=== PATIENT | female | born 1960 | race Caucasian/White ===

== ENCOUNTER → 2016-06-27 | Outpatient (CLI) | payer MEDICARE, MEDICAID ==
[~2016-06-27] MED LIST: ALBUTEROL2.5 MG/NEB IN; AMITRIPTYLINE100 MG PO; CIPRO 500MG TA500 MG PO; CLONAZEPAM 1MG T1 MG PO; CLONAZEPAM0.5 M1 PO; DARVOCET-N 1001 EACH PO; DEPAKOTE 500MG500 MG PO; DICLOFENAC SOD75 MG PO; ESTRADIOL1 MG OR; FLEXERIL10 M1 PO; FLEXERIL5 MG PO; FLUOXETINE20 M2 PO; GABAPENTIN 600600 MG PO; HYDROCODONE1 TABLET PO; IBUPROFEN600 MG PO; KEFLEX 500MG.500 MG PO; KLONOPIN2 MG PO; LORTAB 5/500 501 TAB PO; METRONIDAZOLE500 MG PO; NAPROSYN 500MG500 MG PO; PEN-VK500 MG PO; PENICILLIN-VK500 MG PO; PERCOCET 325 MG1 TA3 PO; PERCOCET 5/3251 EACH PO; PHENERGAN 25MG.25 M1 PO; PREDNISONE 20MG20 MG PO; PROZAC; PYRIDIUM 200MG200 MG PO; ROBAXIN-750750 MG PO; SEPTRA DS 800 M1 TAB PO; TOPIRAGEN200 MG PO; TORADOL10 M1 PO; TRAMADOL 50MG T50 MG PO; TRAZODONE 50MG50 MG PO; TYLENOL/COD #41 EAC1 PO; ULTRAM 50 MG TA50 MG PO; ULTRAM50 MG PO; VALIUM 5MG TABLE5 MG PO; VENLAFAXINE75 MG PO; VICODIN 5/500 T1 TAB PO; ZITHROMAX Z PA250 MG PO; ZOLOFT 50MG TAB50 MG PO
--- NOTE | 2016-06-27 17:15 | RADIOLOGY REPORT PS360 ---
[id number] VIEWS HISTORY: LEFT SHOULDER PAIN ORDERING PHYSICIAN: Shaun Crystal MD PATIENT AGE: 56 years COMPARISON: None FINDINGS: No fracture or dislocation. No lytic or blastic change. There is normal mineralization. The joint spaces are well-preserved. No significant degenerative/arthritic changes. No erosive changes evident. IMPRESSION: Negative, no acute finding
== END ==
LOC: RAD 15:40
DX: M25.512 Pain in left shoulder (principal)

== ENCOUNTER → 2016-09-04 | Outpatient (CLI) | payer MEDICARE, MEDICAID ==
[2016-09-04 18:16] LABS: AMPHETAMINES/METAMPHETAMINES NEGATIVE ng/mL (<1000)
== END ==
LOC: LAB 16:47
PROVIDERS: Emergency Medicine
DX: Z79.899 Other long term (current) drug therapy (principal)
CPT/HCPCS: G0480

== ENCOUNTER 2017-02-05 12:46 | Emergency (ER) | payer MEDICARE, MEDICAID ==
[~2017-02-05] VITALS: Ht 160 cm; Wt 74.8 kg
--- NOTE | 2017-02-05 13:27 | Emergency Room Report ---
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 N Clinical Suspician of Infection? N Mental Status: 1 - Regular (Normal Baseline) Sepsis Risk:Low Sepsis Risk Have you (or family members/close friends) recently traveled outside the [place]? N If Yes, where/when: Have you had exposure to infectious disease within the past month? N TB? Other? Specify: Source patient, RN notes reviewed Exam Limitations no limitations Comment Pt with painin her low back and particularly her right hip for anywhere from 5 to 6 months. No history of any fall or injury but says her hip hurts so badly she can barely walk. She has had surgery on the low back several years ago and it stillhurts too. She saw Dr. Crystal in November Cardiac Chest Pain Chest pain indicative of cardiac No Timing/Duration changing over time Severity severe ALLERGIES Coded Allergies: No Known Allergies (08/03/16) Home Medications Active Scripts Azithromycin (Zithromycin (Z-SULLY) 250MG Tab) 250 MG PO DAILY #6 TAB Prov: 08/06/16 Prednisone (Prednisone 20MG) 20 MG PO BID 5 Days Prov: 08/06/16 Reported Medications Clonazepam (Clonazepam 0.5MG) 0.5 MG PO BID Fluoxetine Hydrochloride (Fluoxetine) 20 MG PO DAILY Gabapentin (Gabapentin 600MG) 800 MG PO TID Divalproex Sodium (Depakote) 500 MG PO BID Estradiol 1 MG OR DAILY History Medical History General CAD? No Angina: No CO: No Hypertension? No Hyperlipidemia? No CHF? No COPD? Yes Asthma? No Anemia? No Hernia? No Thyroid Problems? No Hypothyroidism? No CVA? No Seizures? No Diabetes? No End Stage Renal Disease? No UTI? No Stones? No GB Disease: Yes Nephritic Syndrome? No Asplenia? No Hepatitis? No Sickle Cell Disease? No Arthritis? No Cataracts? No Glaucoma? No MRSA? No TB? No Anxiety? Yes Depression? Yes Cancer? No More? 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 Family History Family Hx Diabetes Yes CAD No Hypertension No Hyperlipidemia No Cancer Yes TB No Social History Smoking Hx Smoker: Current Every Day Smoker Tobacco: Yes Type Cigarettes Packs/day < 1 Pack Alcohol Alcohol: No Review of Systems All Other Systems Reviewed and Negative Constitutional see HPI Musculoskeletal see HPI, back pain, other (right hip pain) Physical Exam Vital Signs Vital Signs Date Time Temp Pulse Resp B/P Pulse O2 O2 Flow FiO2 Ox Delivery Rate 02/05 1253 98.6 88 18 135/79 98 General Appearance normal appearance, WD/WN, moderate distress Ear, Nose, Throat very hard of hearing Respiratory Status No: respiratory distress. 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 Yes Josue was queried for this patient? Yes Reference #: [id number] Risks/benefits of using a controlled substance for treatment were not discussed w/pt Results/Orders Laboratory Tests 02/05/17 1341: ESR 19 Orders Procedure Date/time Status DIET-NOTHING BY MOUTH 02/[address] SCAN REQ 02/05 1411 Active SED RATE 02/05 1333 Complete C-REACTIVE PROTEIN 02/05 1333 Complete XRAY/CT/US XRAY/CT/US CT L-spine CT interpretation by discussed w/radiologist (spinal stenosis lumbar spine) Time results known: 1534 Departure Departure Time of Disposition 153 Disposition DC Home or Self Care(routine) Clinical Impression Primary Impression: Degenerative lumbar spinal stenosis Condition STABLE Referrals Bonilla RICO,Shaun Jansen (PCP/Family): 3 Days-Call Office Patient Instructions DI for Low Back Pain, Low Back Pain Additional Instructions Use meds as directed. Sleep on a flat hard surface. Follow up with PCP to get MRI of L spine Discharge Counseling Counseled pt/family regarding diagnosis, test results, medications/RX, home care, follow up needs Prescriptions Current Visit Scripts HYDROCODONE 5MG/APAP 325MG (Hydrocodon-Acetaminophen 5-325) 1 TAB PO Q4HP PRN pain #18 TAB Cyclobenzaprine Hcl (Flexeril) 5 MG PO BID #60 TAB ED Critical Care Critical Care No If Critical Care minutes are documented, the time involved in the performance of seperately reportable procedures was not counted toward critical care time documented. I directly delivered medical care to this critically ill and/or injured patient. Timely evaluation and treatment was necessary to address the significant organ system(s) dysfunction present in this patient. at 1826
--- NOTE | 2017-02-05 13:27 | Emergency Room Report ---
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 N Clinical Suspician of Infection? N Mental Status: 1 - Regular (Normal Baseline) Sepsis Risk:Low Sepsis Risk Have you (or family members/close friends) recently traveled outside the [place]? N If Yes, where/when: Have you had exposure to infectious disease within the past month? N TB? Other? Specify: Source patient, RN notes reviewed Exam Limitations no limitations Comment Pt with painin her low back and particularly her right hip for anywhere from 5 to 6 months. No history of any fall or injury but says her hip hurts so badly she can barely walk. She has had surgery on the low back several years ago and it stillhurts too. She saw Dr. Crystal in November Cardiac Chest Pain Chest pain indicative of cardiac No Timing/Duration changing over time Severity severe ALLERGIES Coded Allergies: No Known Allergies (08/03/16) Home Medications Active Scripts Azithromycin (Zithromycin (Z-SULLY) 250MG Tab) 250 MG PO DAILY #6 TAB Prov: 08/06/16 Prednisone (Prednisone 20MG) 20 MG PO BID 5 Days Prov: 08/06/16 Reported Medications Clonazepam (Clonazepam 0.5MG) 0.5 MG PO BID Fluoxetine Hydrochloride (Fluoxetine) 20 MG PO DAILY Gabapentin (Gabapentin 600MG) 800 MG PO TID Divalproex Sodium (Depakote) 500 MG PO BID Estradiol 1 MG OR DAILY History Medical History General CAD? No Angina: No VA: No Hypertension? No Hyperlipidemia? No CHF? No COPD? Yes Asthma? No Anemia? No Hernia? No Thyroid Problems? No Hypothyroidism? No CVA? No Seizures? No Diabetes? No End Stage Renal Disease? No UTI? No Stones? No GB Disease: Yes Nephritic Syndrome? No Asplenia? No Hepatitis? No Sickle Cell Disease? No Arthritis? No Cataracts? No Glaucoma? No MRSA? No TB? No Anxiety? Yes Depression? Yes Cancer? No More? 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 Family History Family Hx Diabetes Yes CAD No Hypertension No Hyperlipidemia No Cancer Yes TB No Social History Smoking Hx Smoker: Current Every Day Smoker Tobacco: Yes Type Cigarettes Packs/day < 1 Pack Alcohol Alcohol: No Review of Systems All Other Systems Reviewed and Negative Constitutional see HPI Musculoskeletal see HPI, back pain, other (right hip pain) Physical Exam Vital Signs Vital Signs Date Time Temp Pulse Resp B/P Pulse O2 O2 Flow FiO2 Ox Delivery Rate 02/05 1253 98.6 88 18 135/79 98 General Appearance normal appearance, WD/WN, moderate distress Ear, Nose, Throat very hard of hearing Respiratory Status No: respiratory distress. 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 Yes Josue was queried for this patient? Yes Reference #: [id number] Risks/benefits of using a controlled substance for treatment were not discussed w/pt Results/Orders Laboratory Tests 02/05/17 1341: ESR 19 Orders Procedure Date/time Status DIET-NOTHING BY MOUTH 02/[address] SCAN REQ 02/05 1411 Active SED RATE 02/05 1333 Complete C-REACTIVE PROTEIN 02/05 1333 Complete XRAY/CT/US XRAY/CT/US CT L-spine CT interpretation by discussed w/radiologist (spinal stenosis lumbar spine) Time results known: 1534 Departure Departure Time of Disposition 153 Disposition DC Home or Self Care(routine) Clinical Impression Primary Impression: Degenerative lumbar spinal stenosis Condition STABLE Referrals Bonilla RICO,Shaun Jansen (PCP/Family): 3 Days-Call Office Patient Instructions DI for Low Back Pain, Low Back Pain Additional Instructions Use meds as directed. Sleep on a flat hard surface. Follow up with PCP to get MRI of L spine Discharge Counseling Counseled pt/family regarding diagnosis, test results, medications/RX, home care, follow up needs Prescriptions Current Visit Scripts HYDROCODONE 5MG/APAP 325MG (Hydrocodon-Acetaminophen 5-325) 1 TAB PO Q4HP PRN pain #18 TAB Cyclobenzaprine Hcl (Flexeril) 5 MG PO BID #60 TAB ED Critical Care Critical Care No If Critical Care minutes are documented, the time involved in the performance of seperately reportable procedures was not counted toward critical care time documented. I directly delivered medical care to this critically ill and/or injured patient. Timely evaluation and treatment was necessary to address the significant organ system(s) dysfunction present in this patient. at 1998
--- NOTE | 2017-02-05 15:10 | RADIOLOGY REPORT PS360 ---
CT LUMBAR SPINE W/O CONTRAST CLINICAL INDICATION: Low back pain LOW BACK SURGERY AND PAIN ORDERING PHYSICIAN: Cass Woods MD PATIENT AGE: 56 years COMPARISON: MRI of a 1816 TECHNIQUE:Axial, sagittal, and coronal images are generated and reviewed without contrast FINDINGS: No acute fracture or dislocation. T11-T12, T12-L1 have an unremarkable appearance. L1-L2: Mild degenerative disc disease with small anterior osteophytes. L2-L3: Unremarkable. L3-L4: Small anterior osteophytes. L4-5: Mild degenerative disc disease with small endplate osteophytes anteriorly and mild facet hypertrophic change with mild bulging disc. L5-S1: Prominent facet hypertrophic change and posterior element hypertrophy with mild bilateral foraminal narrowing. Minimal anterolisthesis of L5 on S1 of 2 mm with mild bulging disc. Transverse canal narrowing is present at 9 mm. IMPRESSION: 1. Lumbar spondylosis as described in each level above. Please see above for detail description at each level. 2. Severe facet arthritic changes at L5-S1 with bilateral foraminal narrowing and transverse canal stenosis.
--- NOTE | 2017-02-05 15:10 | RADIOLOGY REPORT PS360 ---
HIP RT 2-3V W/PELVIS IF PERFOR HISTORY: Right hip pain pain ORDERING PHYSICIAN: Cass Woods MD PATIENT AGE: 56 years COMPARISON: None FINDINGS: No fracture or dislocation is evident. No significant degenerative change. No lytic or blastic change. Unremarkable soft tissues IMPRESSION: Negative hip
[2017-02-05 15:51] VITALS: BP 130/74
== END 2017-02-05 15:54 | disposition home or self-care (01) ==
LOC: ER 12:46
DX: M48.06 Spinal stenosis, lumbar region (principal); F17.210 Nicotine dependence, cigarettes, uncomplicated; J44.9 Chronic obstructive pulmonary disease, unspecified; F31.9 Bipolar disorder, unspecified; F41.9 Anxiety disorder, unspecified; Z79.899 Other long term (current) drug therapy; Z79.890 Hormone replacement therapy

== ENCOUNTER → 2017-02-27 | Outpatient (CLI) | payer MEDICARE, MEDICAID ==
[~2017-02-27] MED LIST changes: +FLEXERIL10 MG PO; +HYDROCODONE-APA1 TA1 PO
--- NOTE | 2017-02-27 15:41 | RADIOLOGY REPORT PS360 ---
MRI-L-SPINE W/O COMPARISON: CT lumbar spine 02/05/2017 HISTORY: Low back pain TECHNIQUE: Standard sagittal and axial sequences were performed along with a myelogram sequence. FINDINGS: There is normal curvature and alignment. The marrow signal is normal in all lumbar vertebrae except for minimal sclerotic change anterior inferior borders of the L3-L4 and L1. The spinal canal is normal in size from L1 through L3 4 disc space. The L1-2, L2-3 and L3-4 disc per normal. There is a mild diffuse hard disc osteophyte complex at the L4-5 level. There are mild hypertrophic facet changes at the L3-4 level and moderately severe hypertrophic facet changes at the L4-5 and L5-S1 levels. There is bilateral neural foraminal narrowing at the L4-5 level and mild neural foraminal narrowing on the left-sided L5-S1 secondary to facet arthritic changes. There is bony spinal stenosis at L5-S1 level due to the somewhat small spinal canal at this level compounded by the markedly prominent hypertrophic facet changes. There is definite loss of CSF signal at this level on the myelogram sequence. IMPRESSION: Mild to moderate bony spinal stenosis lower lumbar spine most prominent at L5-S1 level with markedly prominent hypertrophic facet changes at L4-5 and L5-S1 with neural foraminal narrowing at levels L4-5 and L5-S1 as described above
== END ==
LOC: RAD 13:00
DX: M54.5 Low back pain (principal)

== ENCOUNTER 2017-04-16 17:21 | Emergency (ER) | payer MEDICARE, MEDICAID ==
[~2017-04-16] VITALS: Ht 160 cm; Wt 77.1 kg
--- NOTE | 2017-04-16 17:32 | Emergency Room Report ---
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 N Clinical Suspician of Infection? N Mental Status: 1 - Regular (Normal Baseline) Sepsis Risk:Low Sepsis Risk Have you (or family members/close friends) recently traveled outside the [place]? N If Yes, where/when: Have you had exposure to infectious disease within the past month? N TB? Other? Specify: Comment The patient complains of low back pain. She has chronic low back pain and says that she is out of her medication, hydrocodone. She says that she has been out for 1 week. She initially says that she was prescribed this medication by Dr. Woods. On further questioning she then tells me that she saw Dr. Crystal after seeing Dr. Woods in the emergency department here on 02/05/17. She tells me that Dr. Crystal was the last one to prescribe her pain medication. She says that she is going to be seeing Dr. Magaña for pain management but has not yet seen him. ALLERGIES Coded Allergies: No Known Allergies (08/03/16) Home Medications Active Scripts HYDROCODONE 5MG/APAP 325MG (Hydrocodon-Acetaminophen 5-325) 1 TAB PO Q4HP PRN pain #18 TAB Prov: 02/05/17 Cyclobenzaprine Hcl (Flexeril) 5 MG PO BID #60 TAB Prov: 02/05/17 Azithromycin (Zithromycin (Z-SULLY) 250MG Tab) 250 MG PO DAILY #6 TAB Prov: 08/06/16 Prednisone (Prednisone 20MG) 20 MG PO BID 5 Days Prov: 08/06/16 Reported Medications Clonazepam (Clonazepam 0.5MG) 0.5 MG PO BID Fluoxetine Hydrochloride (Fluoxetine) 20 MG PO DAILY Gabapentin (Gabapentin 600MG) 800 MG PO TID Divalproex Sodium (Depakote) 500 MG PO BID Estradiol 1 MG OR DAILY History Medical History General CAD? No Angina: No NM: No Hypertension? No Hyperlipidemia? No CHF? No COPD? Yes Asthma? No Anemia? No Hernia? No Thyroid Problems? No Hypothyroidism? No CVA? No Seizures? No Diabetes? No End Stage Renal Disease? No UTI? No Stones? No GB Disease: Yes Nephritic Syndrome? No Asplenia? No Hepatitis? No Sickle Cell Disease? No Arthritis? No Cataracts? No Glaucoma? No MRSA? No TB? No Anxiety? Yes Depression? Yes Cancer? No More? Yes Additional hx: BIPOLAR Immunization Hx DT/Tetanus Unknown Flu Refused Pneumonia Refuses Surgical Hx Previous Surgery?Y CHOLECYSTECTOMY Tubal Ligation D AND C IAM Back Family History Family Hx Diabetes Yes CAD No Hypertension No Hyperlipidemia No Cancer Yes TB No Social History Smoking Hx Packs/day < 1 Pack Alcohol Alcohol: No Review of Systems All Other Systems Reviewed and Negative Musculoskeletal back pain Physical Exam Vital Signs Vital Signs Date Time Temp Pulse Resp B/P Pulse O2 O2 Flow FiO2 Ox Delivery Rate 04/16 1810 82 18 140/70 04/16 1754 16 04/16 1730 98.3 96 18 146/75 98 General Appearance no apparent distress Respiratory Status No: respiratory distress. 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 No Josue was queried for this patient? Yes Comment [id number] 22 rxs. last rx 04/04/17, 90 lortab 7.5mg. Results/Orders Current Medication Orders Sig/Romeo Start time Last Medication Dose Route Stop Time Status Admin Ketorolac 60 MG ONCE ONE 04/16 1800 DC 04/16 Tromethamine IM 04/16 1801 1754 Ketorolac 0 .STK-MED ONE 04/16 1754 DC Tromethamine .ROUTE Progress - 5:50 PM: I discussed the patient's Josue report with her. It is in conflict with what she is telling me. I advised her of the record of a prescription from Dr. Magaña for 90 Lortab 7.5 mg 12 days ago, which should have been a 30 day supply. She then admits to me that she did receive this prescription and has seen Dr. Lazaro, but states that she ran out because she takes more than prescribed. I advised her that I would not treat her with any narcotics in the emergency department or prescribe any more narcotics. She is misusing her medications and in addition was falsifying information to obtain more here in the emergency department. Departure Departure Disposition DC Home or Self Care(routine) Clinical Impression Primary Impression: Chronic back pain Qualifiers: Back pain location: low back pain Back pain laterality: right Sciatica presence: with sciatica Sciatica laterality: sciatica of right side Qualified Code: M54.41 - Lumbago with sciatica, right side Condition STABLE Patient Instructions DI for Back Pain With Sciatica Additional Instructions Follow-up with Dr. Magaña for further pain management. Always take your pain medication as prescribed, do not take more than prescribed. ED Critical Care Critical Care No at [id number]
--- OUTSIDE RECORDS SUMMARY | 2017-04-16 17:46 | External Medical Summary Rpt | CCD ---
Author Author , STEVE WILSON Address Unknown Phone [email or web address] Care Team Providers Care Digital Artist Name Role Phone REBECCA MANZANARES Unavailable Unavailable D, REBECCA MANZANARES UZMA, Unavailable Unavailable ANTHONY DA SILVA, Unavailable Unavailable [facility], Unavailable Unavailable [facility], Unavailable Unavailable [facility] [place], Unavailable Unavailable [place] [facility] Unavailable Unavailable INC, [facility] Unavailable Unavailable HOSPITAL P, [facility], Unavailable Unavailable [facility] Unavailable Unavailable [facility], [facility] TRENT MYA, TRENT Unavailable Unavailable MYA Ruby Stout MD, Unavailable Unavailable Ruby Stout MD [facility] Unavailable Unavailable SERVICES, [facility] BREANNA ZHAO, Unavailable Unavailable Joi LAGUNAS JR, MELTON, Unavailable Unavailable Joi LOPEZ, SANJOYDEB, Unavailable Unavailable JESSICA SANJOYDEB [facility] Unavailable Unavailable [facility], [facility], Unavailable Unavailable [facility], [facility] Unavailable Unavailable RAJIV TOMAS, Unavailable Unavailable RAJIV TOMAS JON J, Unavailable Unavailable [facility] Unavailable Unavailable [facility] [address], Unavailable Unavailable [facility] [address] [facility] [address], Unavailable Unavailable [facility] [address] [facility] Unavailable Unavailable DEPT [facility], [facility] MELANIE Evan Heck MD, Unavailable Unavailable Evan Heck MD [facility], Unavailable Unavailable [facility] Mackenzie ABBASI ZAACKS, Unavailable Unavailable P L Purpose Continuity of Care Document - 07-08-2007 through 2016 Problems Code Diagnosis DOS Provider Status M545 LOW BACK 02-27-2017 [facility] M5416 RADICULOPAT 02-18-2017 [facility] LUMBAR PHYS[facility] REGION GROUP M1711 UNILATERAL 02-13-2017 [facility] TIS RIGHT SHANNAN KNEE [id number] PRIMARY 02-13-2017 [facility] TIS RIGHT PHARMACEUTI WRIST SHANNAN [id number] PRIMARY 02-13-2017 [facility] TIS LEFT PHARMACEUTI WRIST SHANNAN [id number] PRIMARY 02-13-2017 [facility] TIS RIGHT PHARMACEUTI HAND SHANNAN [id number] PRIMARY 02-13-2017 [facility] TIS LEFT PHARMACEUTI HAND SHANNAN M5137 OTH 02-13-2017 [facility] RAL DISC PHARMACEUTI DEGEN SHANNAN LUMBOSACRAL REGION [id number] SPINAL 02-13-2017 [facility] ES PHARMACEUTI LUMBOSACRAL SHANNAN REGION M6281 MUSCLE 02-13-2017 [facility] GENERALIZED PHARMACEUTI SHANNAN M4806 SPINAL 02-05-2017 [facility] LUMBAR PLL[facility] REGION J449 CHRONIC 01-08-2017 [facility] DISEASE UNS E876 HYPOKALEMIA 08-05-2016 [facility] J189 PNEUMONIA 08-05-2016 [facility] UNSPECIFIED PHYSICIANS ORGANISM GROUP J441 CHRONIC 08-05-2016 [facility] OBSTRUCTIVE PHYSICIANS PULMONARY GROUP DZ W/EXACERBAT ION R05 COUGH 08-03-2016 [facility] R0602 SHORTNESS 08-03-2016 [place] [facility] R079 CHEST PAIN 08-03-2016 [facility] [id number] PAIN IN 06-27-2016 [place] LEFT [facility]ICAL SHOULDER [facility] N6002 SOLITARY 04-06-2016 [facility] LEFT BREAST INC R928 OTH ABNORM 04-06-2016 [facility] & MEDICAL INCONCLUSIV IMAGING ASS E FIND ON DX IMAG BREAST B373 CANDIDIASIS 04-05-2016 [facility] OF VULVA PHYSICIANS AND VAGINA GROUP N951 MENOPAUSAL 04-05-2016 [facility] CLIMACTERIC GROUP STATES N6019 DIFFUSE 01-30-2016 [facility] CYSTIC PHYSICIANS MASTOPATHY GROUP OF UNSPECIFIED BREAST S37758 ENCOUNTER 01-30-2016 [facility] 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 PHYSICIANS GENERAL RTN GROUP W/O ABNORMAL FIND Z1212 ENCOUNTER 01-30-2016 [facility] SCREENING PHYSICIANS MALIGNANT GROUP NEOPLASM RECTUM N42661 SPONDYLOSIS 01-05-2016 [facility] W/O MEDICAL MYELOPATH/R IMAGING ASS ADICULOPATH Y LUMB RGN D123 BENIGN 12-13-2015 [facility] NEOPLASM OF PHYSICIANS TRANSVERSE GROUP COLON D125 BENIGN 12-13-2015 [facility] NEOPLASM OF PHYSICIANS SIGMOID GROUP COLON Z1211 ENCOUNTER 12-13-2015 [facility] SCREENING PHYSICIANS MALIGNANT GROUP NEOPLASM OF COLON N63 UNSPECIFIED 10-03-2015 [facility] BREAST INC N771 VAGINITIS 03-15-2015 [facility] VULVIT & DISTRICT VULVOVAGINI TH DEPT T IN DZ MELANIE CLASS ELSW 60115 ALTERED 10-02-2014 [facility] P 80117 POISONING 10-02-[address] [facility] [address] [facility] P ANT UNSPECIFIED 9694 POISONING 10-02-2014 [facility] BY [facility] P INE-BASED TRANQUILIZE RS 9696 POISONING 10-02-2014 [facility] BY [facility] P PTICS 76398 UNSPECIFIED 09-28-2014 [facility] VAGINITIS DISTRICT AND TH DEPT VULVOVAGINI [facility] TIS V700 ROUTINE 09-28-2014 [facility] DEPT [email or web address] CARE FACL 2689 UNSPECIFIED 06-24-2013 [facility] VITAMIN D [facility] DEFICIENCY INC 64866 LOSS OF 06-24-2013 [facility] 305.1 305.1 02-12-2013 Teresa TOBACCO USE [facility] 496 496 CHR 02-12-2013 Teresa AIRWAY [facility] 786.59 786.59 02-12-2013 Teresa CHEST PAIN [facility] 35549 CLOSED 02-12-2013 [facility] FRACTURE OF UZMA ONE RIB V14.8 V14.8 02-12-2013 Teresa HX-DRUG [facility] ALLERGY [facility] 89737 OTHER 02-03-2013 [facility] DISEASES OF UZMA LUNG NOT ELSEWHERE CLASSIFIED 93376 PAINFUL 02-03-2013 [facility] RESPIRATION UZMA 26668 OTHER 02-03-2013 [facility] INJURY OF UZMA CHEST WALL 73608 POSTLAMINEC 01-20-2013 TRENT MYA WONG SYNDROME LUMBAR REGION 5225 PERIAPICAL 12-22-2012 [facility] ABSCESS WITHOUT SINUS 7213 LUMBOSACRAL 11-24-2012 CODY UZMA SPONDYLOSIS WITHOUT MYELOPATHY 93525 SPINAL STEN 11-24-2012 [facility] LUMB REG UZMA W/O NEUROGENIC CLAUDICATIO N 7242 LUMBAGO 11-24-2012 [facility] INC 7292 UNSPECIFIED 11-24-2012 [facility] NEURALGIA [facility] NEURITIS INC AND RADICULITIS 7243 SCIATICA 10-24-2012 [facility] V571 OTHER 10-24-2012 [facility] PHYSICAL [facility] THERAPY INC 5738 OTHER 09-29-2012 [facility] SPECIFIED UZMA DISORDERS OF LIVER 04807 OTHER 09-29-2012 [facility] SPECIFIED UZMA DISORDER OF KIDNEY AND URETER 599.0 599.0 URIN 09-29-2012 [place] TRACT [facility] INFECTION Hospital NOS 599.70 599.70 09-29-2012 [facility], [facility] 5990 URINARY 09-29-2012 [facility] INFECTION INC SITE NOT SPECIFIED 38396 HEMATURIA 09-29-2012 [facility] UNSPECIFIED [facility] INC 53837 OTH 09-05-2012 [facility] ARTERIAL [facility] EMBOLISM INC THROMBOSIS ABDOMINAL AORTA 59972 OTHER ACUTE 04-15-2012 [facility] POST[facility]AT[facility] VE PAIN 7062 SEBACEOUS 04-14-2012 BREANNA UMANZOR CYST CECE 21491 TRICHOMONAL 11-10-2008 [facility] VULVOVAGINI [facility] ACCT 77379 DISPLCMT 10-20-2008 [place] Villarreal LUMBAR [place]ILL INTERVERT MDPLC DISC W/O MYELOPATHY 42050 CHEST PAIN 10-08-2008 [facility]PECIFIED [facility] 19506 UNSPECIFIED 10-01-2008 [facility] DENTAL [facility] 74025 ACUTE 10-01-2008 [facility] GINGIVITIS [facility] INDUCED 7202 SACROILIITI 09-14-2008 [place] E. S NOT HILL ELSEWHERE MDPLC CLASSIFIED 36511 SPONDYLOSIS 08-16-2008 [place] Villarreal WITH HILL MYELOPATHY MDPLC LUMBAR REGION 23775 OSTEOARTHRO 06-17-2008 ST S UNSPEC [facility] WHETHER MED CTR GEN/LOC UNSPEC SITE 8472 LUMBAR 06-17-2008 ST SPRAIN AND [facility] 43406 CONTUSION 06-17-2008 ST OF BACK [facility] 68384 INJURY OF 05-11-2008 FACE AND MARCELINA NECK OTHER MED CTR AND UNSPECIFIED 5259 UNSPECIFIED 04-23-2008 [facility] TEETH&SUPPO MED CTR RTING STRUCTURES 52262 AGGRESSIVE 03-02-2008 [facility] IS GROUP UNSPECIFIED 76839 DEGEN 03-02-2008 [facility] LUMBAR/LUMB MEDICAL OSACRAL GROUP INTERVERTEB RAL DISC 58840 INSOMNIA 03-02-2008 [facility] UNSPECIFIED MEDICAL GROUP 40937 [place] 10-15-2007 [facility] BREAST PSC V4589 OTHER 10-15-2007 [facility] OTHER 7244 THORACIC/DEREK 09-24-2007 [facility] UNSPEC 7226 DEGENERATIO 09-23-2007 [facility] RAL DISC SITE UNSPEC 91534 OTHER 08-26-2007 [facility] 7245 UNSPECIFIED 08-26-2007 [facility] V4577 ACQUIRED 08-26-2007 [facility] GENITAL ORGANS V7619 OTHER 08-25-2007 [facility] SCREENING HEALTH BREAST [facility] ACCT E87.6 HYPOKALEMIA J18.9 PNEUMONIA, UNSPECIFIED ORGANISM M48.06 SPINAL STENOSIS, LUMBAR REGION M48.061 SPINAL STENOSIS, LUMBAR REGION WITHOUT NEUROGENIC MARIA [facility] M54.5 LOW BACK PAIN N63 UNSPECIFIED LU[place] IN BREAST T88.7XXA UNSP ADVERSE EFFECT OF DRUG OR MEDICAMENT, INIT ENCNTR Z12.31 ENCNTR SCREEN MAMMOGRAM FOR MALIGNANT NEOPLASM OF BREAST 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 Allergies, Adverse Reactions, Alerts Type Allergy to substance Drug Allergy Adverse Reaction to Substance Substance Reaction Severity DARVOCET Unknown Mild NO KNOWN ALLERGIES Unknown Unknown Codeine Unknown Mild Ibuprofen Unknown Mild Tramadol Unknown Mild Medications Na ND Rx Da Fi Fi Am Da Di Ph RX Ph St me C No te ll ll ou ys ag ar # ys at rm s nt no ma ic us Or Da si cy ia de te s n re d KE 00 09 0 No TO 40 -2 RO 93 6- Lo LA 79 20 ng C 50 13 er 30 1 Ac MG ti /M ve L AL TY 50 09 0 No LE 58 -1 NO 00 7- Lo L 45 20 ng EX 10 13 er -S 3 TR Ac ti [address] ve [address] ET Ph 00 06 0 No en 60 -2 az 35 1- Lo op 14 20 ng yr 22 13 er id 1 in Ac e ti 20 ve 0M G Ta bl et COX 51 06 0 No LF 07 -2 AM 90 1- Lo ET 12 20 ng HO 82 13 er XA 0 ZO Ac LE ti -T ve MP DS TA BL ET KE 00 05 0 No TO 40 -1 RO 93 3- Lo LA 79 20 ng C 60 13 er 60 1 Ac MG ti /2 ve ML AL 00 06 07 00 4. 1 GR 17 No Ac 59 -2 -0 00 AN 71 t ti 13 4- 2- 0 T 56 Av ve 97 20 20 CO 1 ai 00 09 09 UN la [address] NOLASCO RI 50 04 04 00 60 30 GR 17 ME Ac SP 45 -0 -2 .0 AN 57 LT ti ER 80 6- 3- 00 T 20 ON ve ID 59 20 20 CO 4 ON 16 09 09 UN GA E 0 TY RY 0. J 5 DR MG NOLASCO TA BL ET AL 59 04 04 00 60 30 GR 17 ME Ac NC 76 -1 -2 .0 AN 59 LT ti AZ 23 6- 3- 00 T 18 ON ve OL 72 20 20 CO 0 AM 10 09 09 UN GA 1 [address] T[address] R[address] J [address] NOLASCO TA BL ET 00 03 04 00 45 30 GR 17 ME Ac 37 -2 -0 .0 AN 54 LT ti 84 4- 9- 00 T 67 ON ve 18 20 20 CO 5 89 09 09 UN GA [address] NOLASCO 00 03 03 00 30 30 GR 17 ME Ac 37 -1 -2 .0 AN 53 LT ti 84 8- 6- 00 T 50 ON ve 18 20 20 CO 5 89 09 09 UN GA [address] NOLASCO 00 03 03 00 60 15 GR 17 ME Ac 40 -1 -2 .0 AN 53 LT ti 60 8- 6- 00 T 50 ON ve 36 20 20 CO 3 00 09 09 UN GA [address] NOLASCO CL 00 01 03 01 60 30 GR 17 ME Ac ON 22 -2 -1 .0 AN 44 LT ti AZ 83 9- 2- 00 T 15 ON ve EP 00 20 20 CO 1 AM 55 09 09 UN GA 2 [address] NOLASCO TA BL ET 00 02 02 00 30 30 GR 17 ME Ac 37 -1 -2 .0 AN 47 LT ti 84 8- 6- 00 T 92 ON ve 18 20 20 CO 2 89 09 09 UN GA [address] NOLASCO 00 01 02 00 90 30 GR 17 ME Ac 40 -2 -1 .0 AN 44 LT ti 60 9- 2- 00 T 14 ON ve 36 20 20 CO 8 00 09 09 UN GA [address] NOLASCO CL 00 01 02 00 60 30 GR 17 ME Ac ON 22 -2 -1 .0 AN 44 LT ti AZ 83 9- 2- 00 T 15 ON ve EP 00 20 20 CO 1 AM 55 09 09 UN GA 2 [address] NOLASCO TA BL ET CL 57 12 05 20 60 30 GR 17 ME Ac ON 66 -1 -3 .0 AN 36 LT ti AZ 40 5- 0- 00 T 36 ON ve EP 27 20 20 CO 1 AM 41 08 09 UN GA 1 [address] NOLASCO TA BL ET 00 01 00 60 30 GR 17 ME Ac 40 -1 -3 .0 AN 40 LT ti 60 2- 0- 00 T 99 ON ve 36 20 20 CO 1 00 09 09 UN GA [address] NOLASCO 00 12 01 30 30 GR 17 ME Ac 37 -1 -1 .0 AN 36 LT ti 84 5- 5- 00 T 36 ON ve 18 20 20 CO 6 89 08 09 UN GA [address] NOLASCO 00 12 01 00 30 30 GR 17 ME Ac 37 -1 -0 .0 AN 36 LT ti 84 5- 1- 00 T 36 ON ve 18 20 20 CO 6 89 08 09 UN GA [address] NOLASCO ME 68 12 01 00 30 30 GR 17 ME Ac LO 18 -1 -0 .0 AN 36 LT ti XI 00 5- 1- 00 T 36 ON ve CA 50 20 20 CO 2 M 20 08 09 UN GA 15 [address] NOLASCO TA BL ET CL 57 12 01 00 60 30 GR 17 ME Ac ON 66 -1 -0 .0 AN 36 LT ti AZ 40 5- 1- 00 T 36 ON ve EP 27 20 20 CO 1 AM 41 08 09 UN GA 1 [address] T[address] NOLASCO TA BL ET 00 12 01 00 60 30 GR 17 ME Ac 40 -1 -0 .0 AN 36 LT ti 60 3- 1- 00 T 36 ON ve 36 20 20 CO 3 00 08 09 UN GA [address] UG 00 12 12 00 15 3 WA 31 MU Ac 59 -0 -1 .0 LG 68 KH ti 10 5- 8- 00 RE 77 ER ve 74 20 20 EN 9 JE 90 08 08 S E 5 57 SA 63 NJ OY DE B CI 57 10 11 01 30 30 GR 17 ME Ac TA 66 -1 -2 .0 AN 24 LT ti LO 40 4- 0- 00 T 92 ON ve NC 50 20 20 CO 3 AM 91 08 08 UN GA 8 TY RY HB J R 40 UG MG TA BL ET CL 57 10 11 01 60 30 GR 17 ME Ac ON 66 -1 -2 .0 AN 24 LT ti AZ 40 4- 0- 00 T 92 ON ve EP 27 20 20 CO 2 AM 41 08 08 UN GA 1 [address] T[address] NOLASCO TA BL ET 00 10 11 01 60 30 GR 17 ME Ac 40 -1 -2 .0 AN 24 LT ti 60 4- 0- 00 T 92 ON ve 36 20 20 CO 6 00 08 08 UN GA [address] NOLASCO CI 57 10 10 00 30 30 GR 17 ME Ac TA 66 -1 -2 .0 AN 24 LT ti LO 40 4- 3- 00 T 92 ON ve NC 50 20 20 CO 3 AM 91 08 08 UN GA 8 TY RY HB J R 40 UG MG TA BL ET ME 68 10 10 00 30 30 GR 17 ME Ac LO 18 -1 -2 .0 AN 24 LT ti XI 00 4- 3- 00 T 92 ON ve CA 50 20 20 CO 5 M 20 08 08 UN GA 15 [address] NOLASCO TA BL ET CL 57 10 10 00 60 30 GR 17 ME Ac ON 66 -1 -2 .0 AN 24 LT ti AZ 40 4- 3- 00 T 92 ON ve EP 27 20 20 CO 2 AM 41 08 08 UN GA 1 [address] NOLASCO TA BL ET 00 10 10 00 60 30 GR 17 ME Ac 60 -1 -2 .0 AN 24 LT ti 33 4- 3- 00 T 92 ON ve 88 20 20 CO 6 32 08 08 UN GA 8 TY RY J UG AM 00 10 10 00 30 10 GR 17 ME Ac OX 78 -1 -2 .0 AN 24 LT ti IC 12 4- 3- 00 T 92 ON ve IL 61 20 20 CO 4 LI 30 08 08 UN GA N 5 TY RY 50 J 0 MG UG CA PS UL E 00 08 09 01 60 30 GR 17 ME Ac 60 -1 -2 .0 AN 14 LT ti 33 4- 6- 00 T 09 ON ve 88 20 20 CO 5 32 08 08 UN GA 8 TY RY J CI 57 08 09 01 30 30 GR 17 ME Ac TA 66 -1 -2 .0 AN 14 LT ti LO 40 4- 6- 00 T 09 ON ve NC 50 20 20 CO 6 AM 91 08 08 UN GA 8 TY RY HB J R 40 UG MG TA BL ET CL 57 08 09 00 60 30 GR 17 ME Ac ON 66 -1 -2 .0 AN 14 LT ti AZ 40 4- 6- 00 T 09 ON ve EP 27 20 20 CO 9 AM 41 08 08 UN GA 1 8 TY RY J MG TA BL ET ES 00 08 09 01 30 30 GR 17 ME Ac TR 37 -1 -2 .0 AN 14 LT ti AD 81 4- 6- 00 T 09 ON ve IO 45 20 20 CO 8 L 40 08 08 UN GA 1 5 TY RY MG J TA UG BL ET 00 08 08 00 60 30 GR 17 ME Ac 60 -1 -2 .0 AN 14 LT ti 33 4- 8- 00 T 09 ON ve 88 20 20 CO 5 32 08 08 UN GA 8 TY RY J CL 57 06 08 01 60 30 GR 17 ME Ac ON 66 -1 -2 .0 AN 04 LT ti AZ 40 6- 8- 00 T 33 ON ve EP 27 20 20 CO 8 AM 41 08 08 UN GA 1 8 TY RY J MG STEVENS UG TA BL ET CI 57 08 08 00 30 30 GR 17 ME Ac TA 66 -1 -2 .0 AN 14 LT ti LO 40 4- 8- 00 T 09 ON ve NC 50 20 20 CO 6 AM 91 08 08 UN GA 8 TY RY HB J R 40 UG MG TA BL ET ES 00 08 08 00 30 30 GR 17 ME Ac TR 37 -1 -2 .0 AN 14 LT ti AD 81 4- 8- 00 T 09 ON ve IO 45 20 20 CO 8 L 40 08 08 UN GA 1 [address] T[address] MUELLER UG BL ET CI 57 07 08 00 30 30 GR 17 ME Ac TA 66 -1 -0 .0 AN 09 LT ti LO 40 7- 1- 00 T 63 ON ve NC 50 20 20 CO 9 AM 91 08 08 UN GA 8 TY RY HB J R 40 UG MG TA BL ET 00 06 08 01 60 30 GR 17 ME Ac 60 -1 -0 .0 AN 04 LT ti 33 6- 1- 00 T 33 ON ve 88 20 20 CO 7 32 08 08 UN GA [address] NOLASCO CL 57 06 07 00 60 30 GR 17 ME Ac ON 66 -1 -1 .0 AN 04 LT ti AZ 40 6- 7- 00 T 33 ON ve EP 27 20 20 CO 8 AM 41 08 08 UN GA 1 [address] T[address] R[address] NOLASCO TA BL ET CI 57 06 07 00 30 30 GR 17 ME Ac TA 66 -1 -0 .0 AN 04 LT ti LO 40 6- 3- 00 T 33 ON ve NC 50 20 20 CO 6 AM 91 08 08 UN GA 8 TY RY HB J R 40 UG MG TA BL ET 57 06 07 00 30 30 GR 17 ME Ac 66 -1 -0 .0 AN 04 LT ti 40 6- 3- 00 T 34 ON ve 51 20 20 CO 0 38 08 08 UN GA 8 TY RY J UG 00 06 07 00 60 30 GR 17 ME Ac 60 -1 -0 .0 AN 04 LT ti 33 6- 3- 00 T 33 ON ve 88 20 20 CO 7 32 08 08 UN GA [address] NOLASCO PE 00 06 06 00 40 10 GR 17 LE Ac NI 78 -0 -1 .0 AN 02 HM ti CI 11 4- 2- 00 T 44 KU ve LL 65 20 20 CO 4 HL IN 51 08 08 UN 0 TY RA VK CH [address] EL 50 UG J 0 MG TA BL ET 00 06 06 00 10 2 WA 14 HI Ac 59 -0 -1 .0 LG 54 LL ti 10 2- 2- 00 RE 22 ve 34 20 20 EN 8 BU 90 08 08 S FO [address] 09 R CI 57 04 06 00 15 30 GR 16 ME Ac TA 66 -1 -0 .0 AN 93 LT ti LO 40 4- 5- 00 T 39 ON ve NC 50 20 20 CO 3 AM 91 08 08 UN GA 8 TY RY HB J R 40 UG MG TA BL ET 00 04 05 01 60 30 GR 16 No Ac 60 -1 -2 .0 AN 93 t ti 33 4- 2- 00 T 39 Av ve 88 20 20 CO 1 ai 32 08 08 UN la [address] NOLASCO CI 57 02 05 00 15 30 GR 16 No Ac TA 66 -1 -0 .0 AN 82 t ti LO 40 5- 8- 00 T 75 Av ve NC 50 20 20 CO 1 ai AM 91 08 08 UN la 8 TY bl HB e R DR 40 UG MG TA BL ET 00 04 04 00 60 30 GR 16 No Ac 60 -1 -2 .0 AN 93 t ti 33 4- 4- 00 T 39 Av ve 88 20 20 CO 1 ai 32 08 08 UN la [address] UG TR 50 04 04 00 60 30 GR 16 No Ac AZ 11 -1 -2 .0 AN 93 t ti OD 10 4- 4- 00 T 39 Av ve ON 43 20 20 CO 2 ai E 30 08 08 UN la 50 [address] TY [address] e [address] UG TA BL ET 00 03 04 00 30 15 GR 16 No Ac 60 -1 -1 .0 AN 88 t ti 33 7- 7- 00 T 26 Av ve 88 20 20 CO 1 ai 32 08 08 UN la [address] UG 00 03 04 00 30 15 GR 16 No Ac 60 -2 -1 .0 AN 89 t ti 33 4- 0- 00 T 71 Av ve 88 20 20 CO 4 ai 32 08 08 UN la [address] UG 00 02 03 00 60 30 GR 16 No Ac 22 -1 -2 .0 AN 82 t ti 82 5- 6- 00 T 75 Av ve 59 20 20 CO 2 ai 91 08 08 UN la [address] UG PE 00 02 03 00 40 10 GR 16 No Ac NI 78 -1 -2 .0 AN 83 t ti CI 11 9- 6- 00 T 33 Av ve LL 65 20 20 CO 3 ai IN 51 08 08 UN la [address] T[address] bl VK e [address] 50 UG 0 MG TA BL ET EN 60 02 03 00 15 2 GR 16 No Ac DO 95 -1 -2 .0 AN 83 t ti CE 10 9- 6- 00 T 33 Av ve T 60 20 20 CO 2 ai 5- 28 08 08 UN la 32 5 TY bl [address] BL UG ET TR 65 02 03 00 60 10 GR 16 No Ac AM 16 -2 -2 .0 AN 83 t ti AD 20 0- 6- 00 T 66 Av ve OL 62 20 20 CO 8 ai 71 08 08 UN la HC 1 TY bl L e 50 DR UG MG TA BL ET GA 59 02 03 00 10 30 GR 16 No Ac BA 76 -1 -2 5. AN 82 t ti PE 25 5- 6- 00 T 75 Av ve NT 02 20 20 0 CO 3 ai IN 60 08 08 UN la 1 TY bl [address] MG UG CA PS UL E Vital Signs 02-12-2013 17:52 Name Value Interpretat Reference Comment ion Range Body 98.3 [degF] Temperature BP 71 mm[Hg] Diastolic BP Systolic 137 mm[Hg] Heart 72 /min Rate/Pulse O2% 96 % Respiratory 18 /min Rate 02-12-2013 17:51 Name Value Interpretat Reference Comment ion Range Body 98.3 [degF] Temperature BP 71 mm[Hg] Diastolic BP Systolic 137 mm[Hg] Heart 72 /min Rate/Pulse O2% 96 % Respiratory 18 /min Rate 02-12-2013 17:15 Name Value Interpretat Reference Comment ion Range BP 70 mm[Hg] Diastolic BP Systolic 112 mm[Hg] Heart 62 /min Rate/Pulse O2% 98 % Respiratory 18 /min Rate 02-03-2013 16:05 Name Value Interpretat Reference Comment ion Range Body 97.7 [degF] Temperature BP 65 mm[Hg] Diastolic BP Systolic 94 mm[Hg] Heart 84 /min Rate/Pulse O2% 97 % Respiratory 18 /min Rate 02-03-2013 15:27 Name Value Interpretat Reference Comment ion Range BP 64 mm[Hg] Diastolic BP Systolic 99 mm[Hg] Heart 75 /min Rate/Pulse O2% 94 % Respiratory 16 /min Rate 12-22-2012 18:50 Name Value Interpretat Reference Comment ion Range BP 86 mm[Hg] Diastolic BP Systolic 127 mm[Hg] Heart 74 /min Rate/Pulse O2% 98 % Respiratory 20 /min Rate 12-22-2012 17:31 Name Value Interpretat Reference Comment ion Range BP 80 mm[Hg] Diastolic BP Systolic 144 mm[Hg] Heart 85 /min Rate/Pulse O2% 98 % Respiratory 18 /min Rate 11-07-2012 19:35 Name Value Interpretat Reference Comment ion Range Body 98.0 [degF] Temperature BP 76 mm[Hg] Diastolic BP Systolic 131 mm[Hg] Heart 84 /min Rate/Pulse O2% 98 % Respiratory 18 /min Rate 09-29-2012 15:19 Name Value Interpretat Reference Comment ion Range Body 98.3 [degF] Temperature BP 83 mm[Hg] Diastolic BP Systolic 122 mm[Hg] Heart 75 /min Rate/Pulse O2% 96 % Respiratory 20 /min Rate 09-29-2012 13:52 Name Value Interpretat Reference Comment ion Range BP 69 mm[Hg] Diastolic BP Systolic 112 mm[Hg] Heart 87 /min Rate/Pulse O2% 98 % Respiratory 18 /min Rate Results Labs Lab Lab Date Result Refere Interp Status Commen Order Detail nces retati t Range on Drugs identified in Urine by Screen method (12-03-2016 15:05) Ampheta NEGATIV <1000 complet mine 017 E ed [Presen 15:05 ce] in Urine by Screen method 11-Hydr POSITIV <50 Abnorma complet oxy 017 E l ed delta-9 15:05 tetrahy drocann abinol [Presen ce] in Unspeci fied specime n URINALYSIS/COMPLETE (11-07-2012 18:18) URINE 11-07-2 YELLOW YELLOW complet COLOR 013 ed 18:18 URINE 11-07-2 SL CLEAR complet APPEARA 013 CLOUDY ed NCE 18:18 URINE 11-07-2 NEGATIV NEG complet GLUCOSE 013 E ed - 18:18 DIPSTIC K URINE 11-07-2 NEGATIV NEG complet BILIRUB 013 E ed IN - 18:18 DIPSTIC K URINE 21-2 NEGATIV NEG complet KETONE 013 E mg/dL ed 18:18 URINE --2 Greater 1.005-1 complet SPECIFI 013 than .030 ed C 18:18 or GRAVITY equal to 1.030 URINE --2 3+ NEG complet BLOOD 013 ed 18:18 URINE -21-2 6.0 UNK 5.0-8.5 complet PH 013 ed 18:18 URINE 11-07-2 NEGATIV NEG complet PROTEIN 013 E mg/dL ed - 18:18 DIPSTIC K URINE -21-2 0.2 NEG complet UROBILI 013 E.U./dL ed NOGEN - 18:18 DIPSTIC K URINE -21-2 NEGATIV NEG complet NITRATE 013 E ed - 18:18 DIPSTIC K URINE -21-2 NEGATIV NEG complet LEUK 013 E ed ESTERAS 18:18 E URINE 11-07-2 50-100 0 complet RBC 013 rbc/hpf ed 18:18 URINE 21-2 3-5 0-5 complet SQUAMOU 013 #/hpf ed S CELLS 18:18 URINALYSIS/COMPLETE (09-29-2012 13:10) URINE 05-13-2 IVANA YELLOW complet COLOR 013 ed 13:10 URINE 05-13-2 SL CLEAR complet APPEARA 013 CLOUDY ed NCE 13:10 URINE 05-13-2 NEGATIV NEG complet GLUCOSE 013 E ed - 13:10 DIPSTIC K URINE 05-13-2 NEGATIV NEG complet BILIRUB 013 E ed IN - 13:10 DIPSTIC K URINE 05-13-2 NEGATIV NEG complet KETONE 013 E mg/dL ed 13:10 URINE 05-13-2 Less 1.005-1 complet SPECIFI 013 than or .030 ed C 13:10 equal GRAVITY to 1.005 URINE 05-13-2 3+ NEG complet BLOOD 013 ed 13:10 URINE 05-13-2 6.0 UNK 5.0-8.5 complet PH 013 ed 13:10 URINE 05-13-2 TRACE NEG complet PROTEIN 013 mg/dL ed - 13:10 DIPSTIC K URINE 05-13-2 0.2 NEG complet UROBILI 013 E.U./dL ed NOGEN - 13:10 DIPSTIC K URINE 05-13-2 NEGATIV NEG complet NITRATE 013 E ed - 13:10 DIPSTIC K URINE 05-13-2 NEGATIV NEG complet LEUK 013 E ed ESTERAS 13:10 E URINE 05-13-2 OCC 0 complet RBC 013 rbc/hpf ed 13:10 URINE 05-13-2 3-5 O complet WBC 013 wbc/hpf ed 13:10 URINE 05-13-2 5-10 0-5 complet SQUAMOU 013 #/hpf ed S CELLS 13:10 URINE 05-13-2 3+ O complet BACTERI 013 ed A 13:10 Encounters Encounter Start End Date Code Location Performer Type Date [facility] - 7 7 [facility] - 7 7 [facility] INPATIENT [facility] [facility] 7 7 [facility] - 6 6 [facility] - 6 6 [facility] - 6 6 [facility] - 6 6 [facility] - 4 4 [facility] Emergency TE Stout MD (ER) 3 16:45 3 17:52 [facility] Emergency TE MILLIGAN (ER) 3 14:40 3 16:06 [facility] Emergency TE Eaton MD (ER) 3 16:18 3 18:51 [facility]ES[facility] - 3 3 [facility] Emergency TE Crystal MD (ER) 3 18:40 3 19:38 [facility] - 3 3 [facility] Emergency TE Heck (ER) 3 13:18 3 15:21 [facility] - 3 3 [facility] - 3 3 [facility] - 2 2 [facility] [facility] [address]
--- OUTSIDE RECORDS SUMMARY | 2017-04-16 17:46 | External Medical Summary Rpt | CCD ---
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 Name Role Phone REBECCA MANZANARES Unavailable Unavailable D, REBECCA MANZANARES UZMA, Unavailable Unavailable ANTHONY DA SILVA, Unavailable Unavailable ANTHONY [facility], Unavailable Unavailable [facility], Unavailable Unavailable [facility] DALLAS HILL, Unavailable Unavailable D[place] HILL [facility] Unavailable Unavailable INC, [facility] Unavailable Unavailable HOSPITAL P, [facility], Unavailable Unavailable [facility] Unavailable Unavailable IM[facility]ING [facility], [facility] TRENT MYA, TRENT Unavailable Unavailable MYA Ruby Stout MD, Unavailable Unavailable Ruby Stout MD [facility] Unavailable Unavailable SERVICES, [facility] BREANNA ZHAO, Unavailable Unavailable Joi LAGUNAS JR, MELTON, Unavailable Unavailable Joi LOPEZ, SANJOYDEB, Unavailable Unavailable JESSICA SANJOYDEB [facility] Unavailable Unavailable [facility], [facility], Unavailable Unavailable [facility], [facility] P[facility]D [facility], [facility] Unavailable Unavailable RAJIV TOMAS, Unavailable Unavailable RAJIV TOMAS JON J, Unavailable Unavailable COCO SALAS [facility] Unavailable Unavailable [facility] [address], Unavailable Unavailable [facility] [address] [facility] [address], Unavailable Unavailable [facility] [address] [facility] Unavailable Unavailable DEPT [facility], [facility] MELANIE Evan Heck MD, Unavailable Unavailable Evan Heck MD [facility], Unavailable Unavailable [facility] Mackenzie ABBASI ZAACKS, Unavailable Unavailable P L Purpose Continuity of Care Document - 07-08-2007 through 2016 Problems Code Diagnosis DOS Provider Status M545 LOW BACK 02-27-2017 [facility] M5416 RADICULOPAT 02-18-2017 [facility] HY LUMBAR PHYSICIANS REGION GROUP M1711 UNILATERAL 02-13-2017 [facility]ARMACEUTI TIS RIGHT SHANNAN KNEE [id number] PRIMARY 02-13-2017 [facility] TIS RIGHT PHARMACEUTI WRIST SHANNAN [id number] PRIMARY 02-13-2017 [facility] TIS LEFT PHARMACEUTI WRIST SHANNAN [id number] PRIMARY 02-13-2017 [facility] TIS RIGHT PHARMACEUTI HAND SHANNAN [id number] PRIMARY 02-13-2017 [facility] TIS LEFT [...] PULMONARY LLC DISEASE UNS E876 HYPOKALEMIA 08-05-2016 [facility] J189 PNEUMONIA 08-05-2016 [facility] UNSPECIFIED PHYSICIANS ORGANISM GROUP J441 CHRONIC 08-05-2016 [facility] OBSTRUCTIVE PHYSICIANS PULMONARY GROUP DZ W/EXACERBAT ION R05 COUGH 08-03-2016 [facility] R0602 SHORTNESS 08-03-2016 [place] OF [facility] R079 CHEST PAIN 08-03-2016 [facility] U[facility]PEC[facility]IED [facility] [id number] PAIN IN 06-27-2016 [place] LEFT MEDICAL SHOULDER IM[facility] ASS N6002 SOLITARY 04-06-2016 [facility]ST [facility] LEFT BREAST INC R928 OTH ABNORM 04-06-2016 [facility] E FIND ON DX IMAG BREAST B373 CANDIDIASIS 04-05-2016 [facility] OF VULVA PHYSICIANS AND VAGINA GROUP N951 MENOPAUSAL 04-05-2016 [facility] AND FEMALE PHYSICIANS CLIMACTERIC GROUP STATES N6019 DIFFUSE 01-30-2016 [facility] CYSTIC PHYSICIANS MASTOPATHY GROUP OF UNSPECIFIED BREAST [id number] ENCOUNTER 01-30-2016 [facility] 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 STARCH OPERATOR EXAM PHYSICIANS GENERAL RTN GROUP W/O ABNORMAL FIND Z1212 ENCOUNTER 01-30-2016 [facility] SCREENING PHYSICIANS MALIGNANT GROUP NEOPLASM RECTUM [id number] SPONDYLOSIS 01-05-2016 [facility] W/O MEDICAL MYELOPATH/R IMAGING ASS ADICULOPATH Y LUMB RGN D123 BENIGN 12-13-2015 [facility] NEOPLASM OF PHYSICIANS TRANSVERSE GROUP COLON D125 BENIGN 12-13-2015 [facility] NEOPLASM OF PHYSICIANS SIGMOID GROUP COLON Z1211 ENCOUNTER 12-13-2015 [facility] SCREENING PHYSICIANS MALIGNANT GROUP NEOPLASM OF COLON N63 UNSPECIFIED 10-03-2015 [facility] BREAST INC N771 VAGINITIS 03-15-2015 [facility] VUL[facility] TH DEPT T IN DZ MELANIE CLASS ELSW 44158 ALTERED 10-02-2014 [facility] P 91127 POISONING 10-02-2014 [facility] BY [facility] P ANT UNSPECIFIED 9694 POISONING 10-02-2014 [facility] BY [facility] P INE-BASED TRANQUILIZE RS 9696 POISONING 10-02-2014 [facility] P PTICS 84489 UNSPECIFIED 09-28-2014 [facility] AND TH DEPT VULVOVAGINI [facility] TIS V700 ROUTINE 09-28-2014 [facility] DEPT [email or web address] CARE FACL 2689 UNSPECIFIED 06-24-2013 [facility] VITAMIN D [facility] [place] [place] [facility] DEFICIENCY INC 10137 LOSS OF 06-24-2013 [facility] WEIGHT [facility] 305.1 305.1 02-12-2013 Teresa TOBACCO USE [facility] 496 496 CHR 02-12-2013 Teresa AIRWAY [facility] 786.59 786.59 02-12-2013 Teresa CHEST PAIN [facility] 81817 CLOSED 02-12-2013 [facility] FRACTURE OF UZMA ONE RIB V14.8 V14.8 02-12-2013 Teresa HX-DRUG [facility] ALLERGY [facility] 59718 OTHER 02-03-2013 [facility] DISEASES OF UZMA LUNG NOT ELSEWHERE CLASSIFIED 14225 PAINFUL 02-03-2013 [facility] RESPIRATION UZMA 39764 OTHER 02-03-2013 [facility] INJURY OF UZMA CHEST WALL 79426 POSTLAMINEC 01-20-2013 TRENT MYA WONG SYNDROME LUMBAR REGION 5225 PERIAPICAL 12-22-2012 [facility] ABSCESS WITHOUT SINUS 7213 LUMBOSACRAL 11-24-2012 CODY UZMA SPONDYLOSIS WITHOUT MYELOPATHY 45805 SPINAL STEN 11-24-2012 [facility] LUMB REG UZMA W/O NEUROGENIC CLAUDICATIO N 7242 LUMBAGO 11-24-2012 [facility] INC 7292 UNSPECIFIED 11-24-2012 [facility] NEURALGIA [facility] [place] [place] [facility] NEURITIS INC AND RADICULITIS 7243 SCIATICA 10-24-2012 [facility] INC V571 OTHER 10-24-2012 [facility] PHYSICAL [facility] [place] [place] [facility] THERAPY INC 5738 OTHER 09-29-2012 [facility] SPECIFIED UZMA DISORDERS OF LIVER 33924 OTHER 09-29-2012 [facility] SPECIFIED UZMA DISORDER OF KIDNEY AND URETER 599.0 599.0 URIN 09-29-2012 [place] TRA[facility] INFECTION Hospital NOS 599.70 599.70 09-29-2012 [facility], [facility] 5990 URINARY 09-29-2012 [facility] INFECTION INC SITE NOT SPECIFIED 11094 HEMATURIA 09-29-2012 [facility] UNSPECIFIED [facility] [place] [place] [facility] INC 35720 OTH 09-05-2012 [facility] ARTERIAL [facility] [place] [place] [facility] EMBOLISM INC THROMBOSIS ABDOMINAL AORTA 45007 OTHER ACUTE 04-15-2012 [facility] VE PAIN 7062 SEBACEOUS 04-14-2012 BREANNA UMANZOR CYST CECE 78220 TRICHOMONAL 11-10-2008 [facility] ACCT 40325 DISPLCMT 10-20-2008 [place] Villarreal LUMBAR HILL INTERVERT MDPLC DISC W/O MYELOPATHY 61666 CHEST PAIN 10-08-2008 [facility] U[facility]PECIFIED [facility] 68187 UNSPECIFIED 10-01-2008 [facility] DENTAL [facility] 41805 ACUTE 10-01-2008 ST GINGIVITIS [facility] INDUCED 7202 SACROILIITI 09-14-2008 [place] E. S NOT HILL ELSEWHERE MDPLC CLASSIFIED 03958 SPONDYLOSIS 08-16-2008 [place] Villarreal WITH HILL MYELOPATHY MDPLC LUMBAR REGION 95839 OSTEOARTHRO 06-17-2008 ST S UNSPEC [facility] WHETHER MED CTR GEN/LOC UNSPEC SITE 8472 LUMBAR 06-17-2008 ST SPRAIN AND [facility] STR[facility] 30432 CONTUSION 06-17-2008 ST OF BACK [facility] 35233 INJURY OF 05-11-2008 FACE AND MARCELINA NECK OTHER MED CTR AND UNSPECIFIED 5259 UNSPECIFIED 04-23-2008 [facility] TEETH&SUPPO MED CTR RTING STRUCTURES 49822 AGGRESSIVE 03-02-2008 [facility] GROUP UNSPECIFIED 65585 DEGEN 03-02-2008 [facility] LUMBAR/LUMB MEDICAL OSACRAL GROUP INTERVERTEB RAL DISC 53861 INSOMNIA 03-02-2008 [facility] UNSPECIFIED MEDICAL GROUP 67567 [place] 10-15-2007 [facility] BREAST PSC V4589 OTHER 10-15-[facility] 7244 THORACIC/DEREK 09-24-2007 [facility] UNSPEC 7226 DEGENERATIO 09-23-2007 [facility] RAL DISC SITE UNSPEC 02218 OTHER 08-26-2007 [facility] 7245 UNSPECIFIED 08-26-2007 [facility] V4577 ACQUIRED 08-26-2007 [facility] GENITAL ORGANS V7619 OTHER 08-25-2007 [facility] SCREENING HEALTH BREAST [facility] ACCT E87.6 HYPOKALEMIA J18.9 PNEUMONIA, UNSPECIFIED ORGANISM M48.06 SPINAL STENOSIS, LUMBAR REGION M48.061 SPINAL STENOSIS, LUMBAR REGION WITHOUT NEUROGENIC MARIA [facility] M54.5 LOW BACK PAIN N63 UNSPECIFIED [place] IN BREAST T88.7XXA UNSP ADVERSE EFFECT OF DRUG OR MEDICAMENT, INIT ENCNTR Z12.31 ENCNTR SCREEN MAMMOGRAM FOR MALIGNANT NEOPLASM OF BREAST 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 THERAPY Allergies, Adverse Reactions, Alerts [...] 00 60 30 GR 17 ME Ac WI 76 -1 -2 .0 AN 59 LT [...] 4- 0- 00 T 92 ON ve WI 50 20 20 CO 3 AM 91 [...] 4- 3- 00 T 92 ON ve WI 50 20 20 CO 3 AM 91 [...] 4- 6- 00 T 09 ON ve WI 50 20 20 CO 6 AM 91 [...] 4- 8- 00 T 09 ON ve WI 50 20 20 CO 6 AM 91 [...] 7- 1- 00 T 63 ON ve WI 50 20 20 CO 9 AM 91 [...] 6- 3- 00 T 33 ON ve WI 50 20 20 CO 6 AM 91 [...] 4- 5- 00 T 39 ON ve WI 50 20 20 CO 3 AM 91 [...] 5- 8- [address] ve WI 50 20 20 CO 1 ai AM [...] End Date Code Location Performer Type Date [facility] - 7 7 [facility] - 7 7 [facility] - 7 7 [facility] - 6 6 [facility] - 6 6 [facility] - 6 6 [facility] - 6 6 [facility] - 4 4 [facility] Emergency TE Stout MD (ER) 3 16:45 3 17:52 [facility] Emergency TE MILLIGAN (ER) 3 14:40 3 16:06 [facility] Emergency TE Eaton MD (ER) 3 16:18 3 18:51 [facility] TERESA - 3 3 [facility] Emergency TE Crystal MD (ER) 3 18:40 3 19:38 [facility] TER[facility] - 3 3 [facility] OUT[facility]EN [facility] Emergency TE Heck (ER) 3 13:18 3 15:21 [facility] TER[facility]A - 3 3 [facility]EN [facility] - 3 3 [facility] - 2 2 [facility] 8 [facility] [address]
--- OUTSIDE RECORDS SUMMARY | 2017-04-16 17:48 | External Medical Summary Rpt | CCD ---
Author Author , STEVE Guzman STEVE Address Unknown Phone [email or web address] Care Team Providers Care Consulting Systems Engineer Name Role Phone REBECCA MANZANARES Unavailable Unavailable D, REBECCA MANZANARES CODY UZMA, Unavailable Unavailable CODY UZMA [facility], Unavailable Unavailable ANTHONY MILLS [facility], Unavailable Unavailable [facility], [facility]available Unavailable [facility] [place], Unavailable Unavailable [facility] Un[facility] Unavailable INC, [facility] Unavailable Unavailable HOSPITAL P, [facility], Unavailable Unavailable [facility] Un[facility] Unavailable [facility], [facility] TRENT MYA, TRENT Unavailable Unavailable MYA [facility] Unavailable Unavailable SERVICES, [facility] BREANNA ZHAO, Unavailable Unavailable MCCELESTINOMIJoi GAUTHIER JR, CONNER, Unavailable Unavailable TRINIDAD OBRIEN, Unavailable Unavailable AYAKA LOPEZB [facility] Un[facility] Unavailable [facility], Unavailable Unavailable PLL[facility], [facility] PUND CHR, PUND CHR Unavailable Unavailable RAJIV TOMAS, Unavailable Unavailable RAJIV TOMAS JON J, Unavailable Unavailable COCO SALAS [facility] Unavailable Unavailable [facility], Unavailable Unavailable [facility] [address] [facility] [address], [facility]available Unavailable [facility] [address] [facility] Unavailable Unavailable DEPT [facility], [facility] DEPT [facility], Unavailable Unavailable [facility] Mackenzie ABBASI, ELROY, Unavailable Unavailable P L Purpose Continuity of Care Document - 07-08-2007 through 2016 Problems Code Diagnosis DOS Provider Status M545 LOW BACK 02-27-2017 ST[place]TT PAIN [facility] M5416 RADICULOPAT 02-18-2017 [facility] M1711 UNILATERAL 02-13-2017 [facility] OSTEOARTHRI PHARMACEUTI TIS RIGHT SHANNAN KNEE [id number] PRIMARY 02-13-2017 [facility] TIS RIGHT PHARMACEUTI WRIST SHANNAN [id number] PRIMARY 02-13-2017 [facility] TIS LEFT PHARMACEUTI WRIST SHANNAN [id number] PRIMARY 02-13-2017 [facility] TIS RIGHT PHARMACEUTI HAND SHANNAN [id number] PRIMARY 02-13-2017 [facility] TIS LEFT [...] PULMONARY LLC DISEASE UNS E876 HYPOKALEMIA 08-05-2016 [facility] J189 PNEUMONIA 08-05-2016 [facility] UNSPECIFIED PHYSICIANS ORGANISM GROUP J441 CHRONIC 08-05-2016 [facility] OBSTRUCTIVE PHYSICIANS PULMONARY GROUP DZ W/EXACERBAT ION R05 COUGH 08-03-2016 [facility] R0602 SHORTNESS 08-03-2016 [facility] OF [facility] R079 CHEST PAIN 08-03-2016 [facility] U[facility]PEC[facility] T07252 PAIN IN 06-27-2016 [facility] LEFT MEDICAL SHOULDER [facility] N6002 SOLITARY 04-06-2016 [facility] LEFT BREAST INC R928 OTH ABNORM 04-06-2016 [facility] & [facility] INCONCLUSIV IMAGING ASS E FIND ON DX IMAG BREAST B373 CANDIDIASIS 04-05-2016 [facility] OF VULVA PHYSICIANS AND VAGINA GROUP N951 MENOPAUSAL 04-05-2016 [facility] AND FEMALE PHYSICIANS CLIMACTERIC GROUP STATES N6019 DIFFUSE 01-30-2016 [facility] CYSTIC PHYSICIANS MASTOPATHY GROUP OF UNSPECIFIED BREAST [id number] ENCOUNTER 01-30-2016 [facility] CORRESPONDENCE DICTATOR EXAM PHYSICIANS GENERAL RTN GROUP W/O ABNORMAL FIND Z1212 ENCOUNTER 01-30-2016 [facility] SCREENING PHYSICIANS MALIGNANT GROUP NEOPLASM RECTUM O63368 SPONDYLOSIS 01-05-2016 [place] W/O MEDICAL MYELOPATH/R IMAGING ASS ADICULOPATH Y LUMB RGN D123 BENIGN 12-13-2015 [facility] NEOPLASM OF PHYSICIANS TRANSVERSE GROUP COLON D125 BENIGN 12-13-2015 [facility] NEOPLASM OF PHYSICIANS SIGMOID GROUP COLON Z1211 ENCOUNTER 12-13-2015 [facility] SCREENING PHYSICIANS MALIGNANT GROUP NEOPLASM OF COLON N63 UNSPECIFIED 10-03-2015 [facility] BREAST INC N771 VAGINITIS 03-15-2015 [facility]UL[facility]IT & DISTRICT VULVOVAGINI [facility] DEPT T IN MELANIE CLASS ELSW 35428 ALTERED 10-02-2014 [facility] F [facility] P 48877 POISONING 10-02-2014 [facility] BY [facility] P ANT UNSPECIFIED 9694 POISONING 10-02-2014 [facility] BY [facility] P INE-BASED TRANQUILIZE RS 9696 POISONING 10-02-2014 [facility] BY [facility] P PTICS 07123 UNSPECIFIED 09-28-2014 [facility] VAGINITIS [facility] DEPT VULVOVAGINI MELANIE TIS V700 ROUTINE 09-28-2014 [facility] DEPT [email or web address] CARE FACL 2689 UNSPECIFIED 06-24-2013 [facility] VITAMIN D [facility] DEFICIENCY INC 71378 LOSS OF 06-24-2013 [facility] WEIGHT [facility] 81235 CLOSED 02-12-2013 [facility] FRACTURE OF UZMA ONE RIB 496 CHRONIC 02-03-2013 CODY AIRWAY UZMA OBSTRUCTION NEC 37393 OTHER 02-03-2013 [facility] DISEASES OF UZMA LUNG NOT ELSEWHERE CLASSIFIED 79326 PAINFUL 02-03-2013 [facility] RESPIRATION UZMA 15753 OTHER 02-03-2013 [facility] INJURY OF UZMA CHEST WALL 20113 POSTLAMINEC 01-20-2013 TRENT MYA WONG SYNDROME LUMBAR REGION 5225 PERIAPICAL 12-22-2012 PUND CHR ABSCESS WITHOUT SINUS 7213 LUMBOSACRAL 11-24-2012 CODY UZMA SPONDYLOSIS WITHOUT MYELOPATHY 11714 SPINAL STEN 11-24-2012 CODY LUMB REG UZMA W/O NEUROGENIC CLAUDICATIO N 7242 LUMBAGO 11-24-2012 [facility] 7292 UNSPECIFIED 11-24-2012 [facility] NEURALGIA [facility] NEURITIS INC AND RADICULITIS 7243 SCIATICA 10-24-2012 [facility] INC V571 OTHER 10-24-2012 [facility] PHYSICAL [facility] THERAPY INC 5738 OTHER 09-29-2012 CODY SPECIFIED UZMA DISORDERS OF LIVER 92793 OTHER 09-29-2012 CODY SPECIFIED UZMA DISORDER OF KIDNEY AND URETER 5990 URINARY 09-29-2012 [facility] TRACT [facility] INFECTION INC SITE NOT SPECIFIED 65739 HEMATURIA 09-29-2012 [facility] UNSPECIFIED [facility] INC 44169 OTH 09-05-2012 [facility] ARTERIAL [facility] EMBOLISM INC THROMBOSIS ABDOMINAL AORTA 78710 OTHER ACUTE 04-15-2012 [facility] POSTOPERATI SERVICES VE PAIN 7062 SEBACEOUS 04-14-2012 BREANNA UMANZOR CYST CECE 23457 TRICHOMONAL 11-10-2008 [facility] HEALTH VULVOVAGINI [facility] ACCT 13030 DISPLCMT 10-20-2008 [place] Villarreal LUMBAR HILL INTERVERT MDPLC DISC W/O MYELOPATHY 17423 CHEST PAIN 10-08-2008 [facility]PECIFIED [facility] 56851 UNSPECIFIED 10-01-2008 ST DENTAL [facility] 33501 ACUTE 10-01-2008 ST GINGIVITIS [facility] PLAQUE MED CTR INDUCED 7202 SACROILIITI 09-14-2008 [place] E. S NOT HILL ELSEWHERE MDPLC CLASSIFIED 22461 SPONDYLOSIS 08-16-2008 [place] Villarreal WITH HILL MYELOPATHY MDP LUMBAR REGION 73923 OSTEOARTHRO 06-17-2008 ST S UNSPEC MARCELINA WHETHER MED CTR GEN/LOC UNSPEC SITE 8472 LUMBAR 06-17-2008 ST SPRAIN AND [facility] STRAIN MED CTR 10577 CONTUSION 06-17-2008 ST OF BACK [facility] 31251 INJURY OF 05-11-2008 ST FACE AND MARCELINA NECK OTHER MED CTR AND UNSPECIFIED 5259 UNSPECIFIED 04-23-2008 ST DISORDER MARCELINA TEETH&SUPPO MED CTR RTING STRUCTURES 38926 AGGRESSIVE 03-02-2008 [facility] GROUP UNSPECIFIED 55150 DEGEN 03-02-2008 [facility] LUMBAR/LUMB MEDICAL OSACRAL GROUP INTERVERTEB RAL DISC 23380 INSOMNIA 03-02-2008 [facility] UNSPECIFIED MEDICAL GROUP 08828 LUMP OR 10-15-2007 RADIOLOG[facility] M[facility] IN ASSOCIATES BREAST PSC V4589 OTHER 10-15-2007 [facility] OTHER 7244 THORACIC/DEREK 09-24-2007 [facility] UNSPEC 7226 DEGENERATIO 09-23-2007 [facility] RAL DISC SITE UNSPEC 11842 OTHER 08-26-2007 [facility] 7245 UNSPECIFIED 08-26-2007 [facility] V[facility]77 ACQUIRED 08-26-2007 [facility] GENITAL ORGANS V7619 OTHER 08-25-2007 [facility] SCREENING HEALTH BREAST CENTRAL EXAM[facility] ACCT Medications Na ND Rx Da Fi Fi Am Da Di Ph RX Ph St me C No te ll ll ou ys ag ar # ys at rm s nt no ma ic us Or Da si cy ia de te s n re d 00 06 07 00 4. 1 GR [...] 00 60 30 GR 17 ME Ac ME 76 -1 -2 .0 AN 59 LT [...] GA [address] NOLASCO CL 00 01 02 00 60 30 GR 17 ME Ac ON 22 -2 -1 .0 AN 44 LT ti AZ 83 9- 2- 00 T 15 ON ve EP 00 20 20 CO 1 AM 55 09 09 UN GA 2 0 TY [address] J [address] NOLASCO TA BL ET 00 01 02 00 90 30 GR 17 ME Ac 40 -2 -1 .0 AN 44 LT ti 60 9- 2- 00 T 14 ON ve 36 20 20 CO 8 00 09 09 UN GA [address] NOLASCO 00 01 00 60 30 GR 17 ME Ac 40 -1 -3 .0 AN 40 LT ti 60 2- 0- 00 T 99 ON ve 36 20 20 CO 1 00 09 09 UN GA [address] NOLASCO CL 57 12 05 20 60 30 GR 17 ME Ac ON 66 -1 -3 .0 AN 36 LT ti AZ 40 5- 0- 00 T 36 ON ve EP 27 20 20 CO 1 AM 41 08 09 UN GA 1 8 TY RY J MG [address] NOLASCO TA BL ET 00 12 01 30 30 GR 17 [...] DR NOLASCO TA BL ET 00 12 00 60 30 GR 17 ME Ac 40 -1 -0 .0 AN 36 LT ti 60 3- 1- 00 T 36 ON ve 36 20 20 CO 3 00 08 09 UN GA [address] NOLASCO 00 12 12 00 15 3 WA 31 MU Ac 59 -0 -1 .0 LG 68 KH ti 10 5- 8- 00 RE 77 ER ve 74 20 20 EN 9 JE 90 08 08 S E 5 57 SA 63 NJ OY DE B CL 57 10 11 01 60 30 GR 17 ME Ac ON 66 -1 -2 .0 AN 24 LT ti AZ 40 4- 0- 00 T 92 ON ve EP 27 20 20 CO 2 AM 41 08 08 UN GA 1 8 TY RY J MG TA BL ET CI 57 10 11 01 30 30 GR 17 ME Ac TA 66 -1 -2 .0 AN 24 LT ti LO 40 4- 0- 00 T 92 ON ve ME 50 20 20 CO 3 AM 91 08 08 UN GA 8 TY RY HB J R 40 UG MG TA BL ET 00 10 11 01 [...] 4- 3- 00 T 92 ON ve ME 50 20 20 CO 3 AM 91 [...] GA [address] NOLASCO AM 00 10 10 00 30 10 GR 17 ME Ac OX 78 -1 -2 .0 AN 24 LT ti IC 12 4- 3- 00 T 92 ON ve IL 61 20 20 CO 4 LI 30 08 08 UN GA N 5 TY RY [address] ESPINOZA UG CA PS UL E ES 00 08 09 01 30 30 GR 17 ME Ac TR 37 -1 -2 .0 AN 14 LT ti AD 81 4- 6- 00 T 09 ON ve IO 45 20 20 CO 8 L 40 08 08 UN GA 1 5 TY RY MG J DR MUELLER UG BL ET CI 57 08 09 01 30 30 GR 17 ME Ac TA 66 -1 -2 .0 AN 14 LT ti LO 40 4- 6- 00 T 09 ON ve ME 50 20 20 CO 6 AM 91 [...] MG DR NOLASCO TA BL ET 00 08 09 01 60 30 GR 17 ME Ac 60 -1 -2 .0 AN 14 LT ti 33 4- 6- 00 T 09 ON ve 88 20 20 CO 5 32 08 08 UN GA [address] NOLASCO ES 00 08 08 00 30 30 GR 17 ME Ac TR 37 -1 -2 .0 AN 14 LT ti AD 81 4- 8- 00 T 09 ON ve IO 45 20 20 CO 8 L 40 08 08 UN GA 1 5 TY R[address] MG J [address] MUELLER UG BL ET 00 08 08 00 60 30 GR 17 ME Ac 60 -1 -2 .0 AN 14 LT ti 33 4- 8- 00 T 09 ON ve 88 20 20 CO 5 32 08 08 UN GA [address] NOLASCO CL 57 06 08 01 60 30 GR 17 ME Ac ON 66 -1 -2 .0 AN 04 LT ti AZ 40 6- 8- 00 T 33 ON ve EP 27 20 20 CO 8 AM 41 08 08 UN GA 1 8 TY R[address] J MG [address] NOLASCO TA BL ET CI 57 08 08 00 30 30 GR 17 ME Ac TA 66 -1 -2 .0 AN 14 LT ti LO 40 4- 8- 00 T 09 ON ve ME 50 20 20 CO 6 AM 91 [...] GA [address] NOLASCO CI 57 07 08 00 30 30 GR 17 ME Ac TA 66 -1 -0 .0 AN 09 LT ti LO 40 7- 1- 00 T 63 ON ve ME 50 20 20 CO 9 AM 91 08 08 UN GA 8 TY RY HB J R 40 UG MG TA BL ET CL 57 06 07 00 60 30 GR 17 ME Ac ON 66 -1 -1 .0 AN 04 LT ti AZ 40 6- 7- 00 T 33 ON ve EP 27 20 20 CO 8 AM 41 08 08 UN GA 1 8 TY RY J MG STEVENS UG TA BL ET CI 57 06 07 00 30 30 GR 17 ME Ac TA 66 -1 -0 .0 AN 04 LT ti LO 40 6- 3- 00 T 33 ON ve ME 50 20 20 CO 6 AM 91 [...] 4- 5- 00 T 39 ON ve ME 50 20 20 CO 3 AM 91 [...] 5- 8- 00 T 75 Av ve ME 50 20 20 CO 1 ai AM [...] la [address] UG GA 59 02 03 00 10 30 GR 16 No Ac BA 76 -1 -2 5. AN 82 t ti PE 25 5- 6- 00 T 75 Av ve NT 02 20 20 0 CO 3 ai IN 60 08 08 UN la 1 TY bl [address] MG UG CA PS UL E 00 02 03 00 60 30 GR [...] 50 DR UG MG TA BL ET Encounters Encounter Start End Date Code Location Performer Type Date [facility]OSPITAL [facility] 6 6 [facility] 6 6 [facility] F [facility] F [facility] 8 F [facility] - 8 8 F [facility] - 8 8 [facility]
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
--- OUTSIDE RECORDS SUMMARY | 2017-04-16 17:49 | External Medical Summary Rpt | CCD ---
Demographics Preferred Language Egyptian Marital Status Unknown Oriental Orthodox Affiliation Unknown Race Unknown Ethnic Group Unknown Author Author , STEVE WILSON Address Unknown Phone Immunization No patient found.
--- OUTSIDE RECORDS SUMMARY | 2017-04-16 17:49 | External Medical Summary Rpt ---
Author Author [employer], [employer] Organization [employer] Address Unknown Phone Unavailable Results Erythrocyte sedimentation rate by Westergren method Observa Value Referen Units Interpr Notes Date tion ce etation Range Erythrocy 0 - 30 mm/hr Normal No Sep te inform2016 1:41 sedimenta on in PM tion rate source by data Westergre n method CRP Observa Value Referen Units Interpr Notes Date tion ce etation Range CRP 0.0 - 0.9 MG/DL Normal No Feb 05 inform2016 1:41 on in PM source data Benzodiazepines Confirm, Urine Observa Value Referen Units Interpr Notes Date tion ce etation Range Benzodi Negativ Cutoff= ng/mL No No Dec 03 azepine e 100 informa informa 2017 s tion in tion in 3:05 PM [Presen source source ce] in data data Urine Alprazo Negativ Cutoff= No No No Dec 03 bertrand e 100 informa informa informa 2017 [Presen tion in tion in tion in 3:05 PM ce] in source source source Urine data data data Clonaze Negativ Cutoff= No No No Dec 03 kd e 100 informa informa informa 2017 [Presen tion in tion in tion in 3:05 PM ce] in source source source Urine data data data Temazep Negativ Cutoff= No No No Dec 03 am e 100 informa informa informa 2017 [Presen tion in tion in tion in 3:05 PM ce] in source source source Urine data data data by Confirm method Triazol Negativ Cutoff= No No No Dec 03 am e 100 informa informa informa 2017 [Presen tion in tion in tion in 3:05 PM ce] in source source source Urine data data data Midazol Negativ Cutoff= No No No Dec 03 am e 100 informa informa informa 2017 [Presen tion in tion in tion in 3:05 PM ce] in source source source Urine data data data by Confirm method Nordiaz Negativ Cutoff= No No No Dec 03 epam e 100 informa informa informa 2016 [Presen tion in tion in tion in 3:05 PM ce] in source source source Urine data data data Please Comment . No No Drug-te Dec 03 Note: informa informa st 2017 tion in tion in results 3:05 PM source source should data data be interpr eted in the context of clinica linform ation. Patient metabol ic variabl es, specifi c drug chemistry manager ry, andspec imen charact eristic s can affect test outcome . Technic alconsu ltation is availab le if a test result is inconsi stent with anexpec batsheva outcome . (email- héctorvinay you @[employer] or call [phone] )Drug brands, if listed herein, are tradema rks of their respect charlene rs.Perf ormed at: [facility] [id number] [place], [place] [id number] 53Lab Directo r: Shaun Castrejon MD, Phone: [phone] Oxazepa Negativ Cutoff= No No No Dec 03 m e 100 informa informa informa 2016 [Presen tion in tion in tion in 3:05 PM ce] in source source source Urine data data data Fluraze Negativ Cutoff= No No No Dec 03 kd e 100 informa informa informa 2017 [Presen tion in tion in tion in 3:05 PM ce] in source source source Urine data data data Lorazep Negativ Cutoff= No No No Dec 03 am e 100 informa informa informa 2016 [Presen tion in tion in tion in 3:05 PM ce] in source source source Urine data data data Drugs identified in Urine by Screen method Observa Value Referen Units Interpr Notes Date tion ce etation Range Positive urine drug screen samples are stored for 7 days. Contact the Lab if confirmation of positives is needed. Ampheta NEGATIV <1000 ng/mL No No Dec 03 mine E informa informa 2016 [Presen tion in tion in 3:05 PM ce] in source source Urine data data by Screen method Barbitura <200 ng/mL No No Dec 03 stefany informati informati 2016 3:05 [Mass/vol on in on in PM ume] in source source Urine by data data Screen method Benzodiaz 200 ng/mL ng/mL No No Dec 03 epines informati informati 2016 3:05 [Mass/vol on in on in PM ume] in source source Serum or data data Plasma by Screen method Cocaine <300 ng/g No No Dec 03 [Mass/vol informati informati 2016 3:05 ume] in on in on in PM Unspecifi source source ed data data specimen Methadone <300 ng/mL No No Dec 03 informati informati 2016 3:05 [Mass/vol on in on in PM ume] in source source Unspecifi data data ed specimen Opiates <300 ng/mL No No Dec 03 [Mass/vol informati informati 2016 3:05 ume] in on in on in PM Unspecifi source source ed data data specimen Phencycli <25 ng/mL No No Dec 03 dine informati informati 2016 3:05 [Mass/vol on in on in PM ume] in source source Unspecifi data data ed specimen 11-Hydr POSITIV <50 ng/mL Abnorma This is Dec 03 oxy E l an 2017 delta-9 UNCONFI 3:05 PM RMED tetrahy result. drocann This abinol result [Presen is for ce] in medical Unspeci purpose fied s specime and/or n treatme nt only.
--- OUTSIDE RECORDS SUMMARY | 2017-04-16 17:49 | External Medical Summary Rpt ---
[...] metabol ic variabl es, specifi c drug formulation chemist ry, andspec imen charact eristic s can affect test outcome . Technic alconsu ltation is availab le if a test result is inconsi stent with anexpec batsheva outcome . (email- héctorvinay you @[employer] or call [phone] )Drug brands, if listed herein, are tradema rks of their respect charlene rs.Perf ormed at: [facility] [id number] [place], [place] [id number] 53Lab Directo r: Shaun Castrejon MD, Phone: [phone] Oxazepa Negativ Cutoff= No No No Dec [...]
--- OUTSIDE RECORDS SUMMARY | 2017-04-16 17:49 | External Medical Summary Rpt | CCD ---
Demographics Preferred Language Citizen Of [place] Marital Status Unknown Adventist Affiliation Unknown Race Unknown Ethnic Group Unknown Author Author , STEVE WILSON Address Unknown Phone Immunization No patient found.
[2017-04-16 18:10] VITALS: BP 140/70
[2017-05-06] MEDS ORDERED: HYDROCODONE-APA1 TA1 PO (10:17)
[2017-05-06] MEDS ORDERED: ABILIFY5 MG PO (10:17)
== END 2017-04-16 18:12 | disposition home or self-care (01) ==
LOC: ER 17:21
DX: M54.41 Lumbago with sciatica, right side (principal); J44.9 Chronic obstructive pulmonary disease, unspecified; F41.8 Other specified anxiety disorders

== ENCOUNTER → 2017-04-23 | Outpatient (CLI) | payer MEDICARE, MEDICAID ==
[2017-04-23 16:54] LABS: AMPHETAMINES/METAMPHETAMINES NEGATIVE ng/mL (<1000)
[2017-04-28 18:35] LABS: Alprazolam Negative (Cutoff=100); Benzodiazepines Positive ng/mL (Cutoff=100); Clonazepam Positive (.); Clonazepam Confirm 574 ng/mL (Cutoff=100); Flurazepam Negative (Cutoff=100); Lorazepam Negative (Cutoff=100); Midazolam Negative (Cutoff=100); Temazepam Negative (Cutoff=100); Triazolam Negative (Cutoff=100)
== END ==
LOC: LAB 15:40
PROVIDERS: Emergency Medicine
DX: Z79.899 Other long term (current) drug therapy (principal)
CPT/HCPCS: G0480